=== PATIENT | female | born 1965 | race Caucasian/White ===

== ENCOUNTER 2021-08-26 07:09 | Inpatient (IN) ==
--- NOTE | 2021-08-26 07:17 | Emergency Department Note ---
HPI General Chief complaint: Abdominal Pain Stated complaint: Abdominal Pain Time Seen by Provider: 08/26/21 07:17 Source: patient Mode of arrival: ambulatory Limitations: no limitations History of Present Illness HPI Narrative: 56-year-old female presenting with abdominal pain and vomiting. Pain started yesterday evening and is diffusely throughout the abdomen. Does not radiate to her back. She denies any prior abdominal surgeries. She is a pack per day smoker and has a history of COPD. Denies drug or alcohol use. No blood in the vomit, melena, fever, or dysuria. Related Data Previous Rx's Medication Instructions Recorded ondansetron 4 mg disintegrating 4 mg PO Q6H PRN #14 tab 04/15/20 tablet Allergies Allergy/AdvReac Type Severity Reaction Status Date / Time No Known Drug Allergies Allergy Verified 08/14/19 13:49 Review of Systems ROS ROS Narrative: Narrative: Constitutional: Denies fever or chills ENT ED: Denies throat pain Cardiovascular: Denies chest pain Respiratory: Denies shortness of breath or cough Gastrointestinal: Reports abdominal pain, nausea and vomiting; Denies diarrhea, hematochezia or melena Genitourinary: Denies dysuria or hematuria Musculoskeletal: Denies back pain Integumentary: Denies rash Neurological: Denies headache or weakness Psychiatric: Denies anxiety Endocrine: Denies fatigue Hematological/Lymphatic: Denies easy bruising PFSH Narrative Patient History Narrative: Narrative: Medical/Surgical/Family History All Active Problems (Updated 08/26/21 @ 15:34 by Cesar Bhagat MD) Gastritis (Acute) Partial small bowel obstruction (Acute) Bilateral leg pain (Acute) Other contact with other birds, initial encounter (Chronic) Gastroesophageal reflux disease (Chronic) Tobacco use (Chronic) Injury of left shoulder (Chronic ~2007) Endometriosis (Chronic) Renal calculus (Chronic) Left shoulder pain (Chronic) Low back pain (Chronic) Shortness of breath (Chronic) Cough (Chronic) Granulomatous interstitial lung disease (Chronic) COPD exacerbation (Chronic) Chronic neck pain (Chronic) COPD (chronic obstructive pulmonary disease) (Chronic) Lung granuloma (Chronic) Lung nodules (Chronic) Foreign body of ear, right (Acute) Chest pain (Acute) Headache (Acute) Sinusitis (Acute) Cervicalgia (Acute) Tension headache (Acute) Pleurisy (Acute) Lung granuloma (Acute) Medical History Cervicalgia Chest pain Chronic neck pain COPD (chronic obstructive pulmonary disease) COPD exacerbation Cough Endometriosis Foreign body of ear, right Gastroesophageal reflux disease Granulomatous interstitial lung disease Headache Injury of left shoulder (~2007) Left shoulder pain Low back pain Lung granuloma Lung nodules Renal calculus Shortness of breath Sinusitis Tension headache Tobacco use Started smoking age 14; still smoking three-quarter pack a day. Surgical History History of neck surgery Cervical Double Diskectomy Status post laparoscopic surgery Endometriosis Family History (Updated 04/14/20 @ 23:50 by Arslan Tong DO) Mother Lymphoma Social History Smoking Status: Current every day smoker Alcohol Intake Frequency: does not drink Substance Use: does not use Exam Narrative Narrative: Narrative: General Limitations: no limitations General appearance: Present alert and in no apparent distress Head Head: Present atraumatic and normocephalic Eye Eye: Present normal appearance and EOMI; Absent scleral icterus or conjunctival injection ENT ENT: Present mucous membranes moist Neck Neck: Present trachea midline Chest Chest: Present symmetric chest wall rise Respiratory Respiratory: Present normal lung sounds bilaterally; Absent respiratory distress , rales/crackles, wheezes, stridor or accessory muscle use Cardiovascular Cardiovascular: Present regular rate and normal rhythm; Absent systolic murmur or diastolic murmur Adbominal Abdominal: Present soft and tenderness (Mild diffuse tenderness to palpation); Absent distention, guarding, rebound, rigidity, organomegaly or mass Extremities Extremities: Present normal inspection; Absent pretibial edema Back Back: Absent CVA tenderness (R), CVA tenderness (L) or spinous process tenderness Neurological Neurological: Present alert and oriented X3; Absent motor sensory deficit Psychiatric Psychiatric: Present normal affect and normal mood Skin Skin: Present warm (WNL) and dry Course Consultations Consultation #1: Dr. De La Vega, general surgery Time: 15:20 Vital Signs Vital signs: Vital Signs Temperature 97.7 F 08/26/21 07:10 Pulse Rate 61 08/26/21 07:10 Respiratory Rate 20 08/26/21 07:10 Blood Pressure 143/65 08/26/21 07:10 Pulse Oximetry (%) 98 08/26/21 07:10 Temperature 97.7 F 08/26/21 07:10 Pulse Rate 73 08/26/21 15:24 Respiratory Rate 20 08/26/21 07:10 Blood Pressure 110/76 08/26/21 15:24 Pulse Oximetry (%) 93 08/26/21 15:24 [facility] MDM Narrative Medical decision making narrative: 56-year-old female presenting with abdominal pain and vomiting. Vital signs are normal. Abdomen is diffusely tender on exam. Will obtain labs, CT, and reevaluate. Labs notable for mild leukocytosis to 14.3. Per Dr. Cespedes of radiology, CT shows a partial small bowel obstruction. I spoke with Dr. De La Vega of general surgery who will admit the patient and we will place an NG tube here in the emergency department. Findings and plan discussed with patient. Lab Data Lab results reviewed: Yes I reviewed the patient's lab results. Result diagrams: 08/26/21 08:13 08/26/21 08:13 Labs: Lab Results 08/26/21 08/26/21 08/26/21 Range/Units 08:12 08:13 08:13 WBC 14.3 H (4.5-11.0) K/mcL RBC 4.40 (3.59-5.38) M/mcL Hgb 13.4 (11.2-15.7) g/dL Hct 39.4 (34.1-44.9) % MCV 89.5 (80.0-100.0) fL MCH 30.5 (26.0-34.0) pg MCHC 34.0 (31.0-36.0) g/dL RDW 13.5 (11.5-14.5) % Plt Count 373 (140-440) K/mcL MPV 10.6 H (7.4-10.4) fL Neut % (Auto) 68.7 (38.0-78.0) % Lymph % (Auto) 22.4 (15.5-49.0) % [place] % (Auto) 8.7 (1.0-12.0) % Eos % (Auto) 0.1 (0.0-7.0) % Baso % (Auto) 0.1 (0.0-2.0) % Lymph # (Auto) 3.21 (1.50-4.80) K/mcL [place] # (Auto) 1.25 H (0.10-0.90) K/mcL Eos # (Auto) 0.01 (0.00-0.70) K/mcL Baso # (Auto) 0.02 (0.00-0.30) K/mcL Absolute Neutrophils 9.81 H (1.80-8.00) K/mcL Sodium 132 L (133-145) mmol/L Potassium 3.9 (3.3-5.1) mmol/L Chloride 98 (96-108) mmol/L Carbon Dioxide 20 L (22-30) mmol/L Anion Gap 14.0 (8.0-16.0) BUN 19 (6-20) mg/dL Creatinine 0.9 (0.6-1.1) mg/dL POC Creatinine 0.9 (0.6-1.2) GFR Calculation 70 Glucose 125 H (70-105) mg/dL Calcium 10.7 H (8.6-10.4) mg/dL Total Bilirubin 0.4 (0.1-1.0) mg/dL AST 22 (<32) U/L ALT 11 (<40) U/L Alkaline Phosphatase 101 (39-117) U/L Total Protein 7.9 (5.9-8.4) gm/dL Albumin 4.7 (3.2-5.2) gm/dL Globulin 3.2 (2.2-3.7) gm/dL Albumin/Globulin Ratio 1.5 (1.0-2.3) Lipase 22 (7-60) U/L Discharge Plan Patient/Caregiver Discharge Instructions Pt seen by [facility] [employer]/PA only: No Clinical Impression: Partial small bowel obstruction Patient Disposition: Xfer As Inpt ([facility]) Condition: Fair Follow up with: No,PCP [Primary Care Provider] - Prescriptions: No Action ondansetron 4 mg tablet,disintegrating 4 mg PO Q6H PRN (Reason: nausea and vomiting) Qty: 14 0RF
[2021-08-26] MEDS ORDERED: ONDANSETRON 4 MG/2 ML VIAL IV ONE (07:45)
[2021-08-26 09:03] LABS: Basophils # (Auto) 0.02 K/mcL (0.00-0.30); Basophils % (Auto) 0.1 % (0.0-2.0); Eosinophils # (Auto) 0.01 K/mcL (0.00-0.70); Eosinophils % (Auto) 0.1 % (0.0-7.0); Hematocrit 39.4 % (34.1-44.9); Hemoglobin 13.4 g/dL (11.2-15.7); Lymphocytes # (Auto) 3.21 K/mcL (1.50-4.80); Lymphocytes % (Auto) 22.4 % (15.5-49.0); Mean Cell Volume 89.5 fL (80.0-100.0); Mean Platelet Volume 10.6 fL (7.4-10.4); Monocytes # (Auto) 1.25 K/mcL (0.10-0.90); Monocytes % (Auto) 8.7 % (1.0-12.0); Neutrophils % (Auto) 68.7 % (38.0-78.0); Platelet Count 373 K/mcL (140-440); Red Cell Distribution Width 13.5 % (11.5-14.5); WBC 14.3 K/mcL (4.5-11.0)
[2021-08-26 09:23] LABS: ALT/SGPT 11 U/L (<40); AST/SGOT 22 U/L (<32); Albumin 4.7 gm/dL (3.2-5.2); Albumin/Globulin Ratio 1.5 (1.0-2.3); Alkaline Phosphatase 101 U/L (39-117); Bilirubin,Total 0.4 mg/dL (0.1-1.0); Blood Urea Nitrogen 19 mg/dL (6-20); Calcium 10.7 mg/dL (8.6-10.4); Carbon Dioxide 20 mmol/L (22-30); Chloride 98 mmol/L (96-108); Globulin 3.2 gm/dL (2.2-3.7); Glomerular Filtration Rate 70; Glucose 125 mg/dL (70-105)
[2021-08-26] MEDS ORDERED: 0.9 % SODIUM CHLORIDE 1,000 ML IV ONE (09:28)
[2021-08-26] MEDS ORDERED: ONDANSETRON 4 MG/2 ML VIAL IV PRN (15:47)
--- NOTE | 2021-08-26 15:59 | General Surg History&Physical ---
HPI History of Present Illness Patient information: Note initiated : 08/26/21 at 3:53 pm Service Date, if different from initiated Date: [] Patient: Dean Frank a 56 y/o F admitted on for Abdominal Pain. Chief Complaint: [] Chief complaint: Nausea and vomiting History of present illness: Ms. Rachel Aguilar is a 56 year old F with a prior history in her 20s exploratory laparoscopy for endometriosis. She denies any other abdominal surgeries. Patient was recently at [facility] and was discharged with 5 days worth azithromycin for shortness of breath, cough and diagnosis of pneumonia. She was discharged 2 days ago. She started yesterday with abdominal distention, nausea and emesis. She came into our emergency room where work-up with CT scan is significant for a partial small bowel obstruction. She denies any other medical problems. She denies any fevers or chills. Review of Systems Review of systems: All systems are reviewed, negative other than above PFSH PFSH All Active Problems Gastritis (Acute) Partial small bowel obstruction (Acute) Bilateral leg pain (Acute) Other contact with other birds, initial encounter (Chronic) Gastroesophageal reflux disease (Chronic) Tobacco use (Chronic) Injury of left shoulder (Chronic ~2007) Endometriosis (Chronic) Renal calculus (Chronic) Left shoulder pain (Chronic) Low back pain (Chronic) Shortness of breath (Chronic) Cough (Chronic) Granulomatous interstitial lung disease (Chronic) COPD exacerbation (Chronic) Chronic neck pain (Chronic) COPD (chronic obstructive pulmonary disease) (Chronic) Lung granuloma (Chronic) Lung nodules (Chronic) Foreign body of ear, right (Acute) Chest pain (Acute) Headache (Acute) Sinusitis (Acute) Cervicalgia (Acute) Tension headache (Acute) Pleurisy (Acute) Lung granuloma (Acute) Medical History Cervicalgia Chest pain Chronic neck pain COPD (chronic obstructive pulmonary disease) COPD exacerbation Cough Endometriosis Foreign body of ear, right Gastroesophageal reflux disease Granulomatous interstitial lung disease Headache Injury of left shoulder (~2007) Left shoulder pain Low back pain Lung granuloma Lung nodules Renal calculus Shortness of breath Sinusitis Tension headache Tobacco use Started smoking age 14; still smoking three-quarter pack a day. Surgical History History of neck surgery Cervical Double Diskectomy Status post laparoscopic surgery Endometriosis Family History Mother Lymphoma Social History alcohol intake frequency: does not drink substance use type: does not use MEDS/ALLERGIES Home Medications and Allergies Home Medications Medication Instructions Recorded Confirmed Type ondansetron 4 mg disintegrating 4 mg PO Q6H PRN #14 tab 04/15/20 Rx tablet Allergies Allergy/AdvReac Type Severity Reaction Status Date / Time No Known Drug Allergies Allergy Verified 08/14/19 13:49 Physical Examination Vital Signs Vital signs: Temp Pulse Resp BP Pulse Ox 97.7 F 73 20 110/76 93 08/26/21 07:10 08/26/21 15:24 08/26/21 07:10 08/26/21 15:24 08/26/21 15:24 General physical appearance General physical exam: well developed, well nourished and no distress Eyes Eye exam: PERRL and normal ocular movement ENT ENT exam: normal pinna, normal nares, normal mucosa, no hearing loss and no congestion Head Head exam IM: Present atraumatic and normocephalic Neck Neck exam: no masses, no bruits, trachea midline, no lymphadenopathy and no venous distension Cardiovascular Cardiovascular exam IM: Present normal rate and rhythm Respiratory Respiratory exam: normal expansion, normal respiratory effort, clear to percussion and clear to auscultation Abdomen Abdomen: Present soft, tender, bowel sounds and distended Hernia: Present none Genitourinary Genitourinary (Female): Present normal external genitalia Rectum Rectum: Present normal sphincter tone, no hemorrhoids, no tenderness, no masses and no bleeding Integumentary Integumentary: Present no rash, no growths and no abnormal pigmentation Neurologic Neurologic: Present normal coordination and normal sensation Musculoskeletal Musculoskeletal: Present normal gait and normal posture Psychiatric Psychiatric: Present oriented to time, oriented to person, oriented to place, speech is normal and memory intact Results Labs Result diagrams: 08/26/21 08:13 08/26/21 08:13 Labs: Abnormal lab results 08/26/21 08/26/21 Range/Units 08:13 08:13 WBC 14.3 H (4.5-11.0) K/mcL MPV 10.6 H (7.4-10.4) fL [place] # (Auto) 1.25 H (0.10-0.90) K/mcL Absolute Neutrophils 9.81 H (1.80-8.00) K/mcL Sodium 132 L (133-145) mmol/L Carbon Dioxide 20 L (22-30) mmol/L Glucose 125 H (70-105) mg/dL Calcium 10.7 H (8.6-10.4) mg/dL Diabetes panel 08/26/21 Range/Units 08:13 Sodium 132 L (133-145) mmol/L Potassium 3.9 (3.3-5.1) mmol/L Chloride 98 (96-108) mmol/L Carbon Dioxide 20 L (22-30) mmol/L BUN 19 (6-20) mg/dL Creatinine 0.9 (0.6-1.1) mg/dL Glucose 125 H (70-105) mg/dL Calcium 10.7 H (8.6-10.4) mg/dL AST 22 (<32) U/L ALT 11 (<40) U/L Alkaline Phosphatase 101 (39-117) U/L Total Protein 7.9 (5.9-8.4) gm/dL Albumin 4.7 (3.2-5.2) gm/dL Calcium panel 08/26/21 Range/Units 08:13 Calcium 10.7 H (8.6-10.4) mg/dL Albumin 4.7 (3.2-5.2) gm/dL Pituitary panel 08/26/21 Range/Units 08:13 Sodium 132 L (133-145) mmol/L Potassium 3.9 (3.3-5.1) mmol/L Chloride 98 (96-108) mmol/L Carbon Dioxide 20 L (22-30) mmol/L BUN 19 (6-20) mg/dL Creatinine 0.9 (0.6-1.1) mg/dL Glucose 125 H (70-105) mg/dL Calcium 10.7 H (8.6-10.4) mg/dL Adrenal panel 08/26/21 Range/Units 08:13 Sodium 132 L (133-145) mmol/L Potassium 3.9 (3.3-5.1) mmol/L Chloride 98 (96-108) mmol/L Carbon Dioxide 20 L (22-30) mmol/L BUN 19 (6-20) mg/dL Creatinine 0.9 (0.6-1.1) mg/dL Glucose 125 H (70-105) mg/dL Calcium 10.7 H (8.6-10.4) mg/dL Total Bilirubin 0.4 (0.1-1.0) mg/dL AST 22 (<32) U/L ALT 11 (<40) U/L Alkaline Phosphatase 101 (39-117) U/L Total Protein 7.9 (5.9-8.4) gm/dL Albumin 4.7 (3.2-5.2) gm/dL All other labs normal. Imaging Abdominal x-ray: other (CT scan reviewed by myself, consistent with distal partial small bowel obstruction.) A/P Assessment and plan (1) Partial small bowel obstruction: Plan: This is a pleasant 56-year-old female who presents with signs symptoms consistent with partial small bowel obstruction. Plan: Admit, n.p.o., NG tube, plan on small bowel follow-through in the a.m. Status: Acute (2) Tobacco use: Status: Chronic Comment: Started smoking age 14; still smoking three-quarter pack a day. (3) Endometriosis: Status: Chronic (4) Shortness of breath: Status: Chronic (5) Cough: Status: Chronic (6) COPD (chronic obstructive pulmonary disease): Status: Chronic Time Spent With Patient Time: Total time spent is greater than 50% in coordination of care (as documented) at patient's floor/unit and/or counseling patient:
[2021-08-26] MEDS ORDERED: AZITHROMYCIN 250 MG in DEXTROSE 5% IN WATER 250 ML IV SCH (16:00)
--- NOTE | 2021-08-26 16:02 | Cat Scan Report ---
CLINICAL INFORMATION: Abdominal pain COMPARISON: None. TECHNIQUE: Following enteric contrast, 80 cc of Isovue-370 were injected intravenously, and 60 seconds later, 0.625 mm helical slices were obtained from the mid heart through the subtrochanteric regions. Following reconstruction, 2.5 mm sagittal, coronal and axial reformatted images were processed and reviewed at bone, lung and soft tissue windows. Five minutes later, 0.625 mm helical slices were obtained from the mid heart through the kidneys and viewed at soft tissue windows.The exam was performed using radiation dose optimization techniques including, but not limited to, automated exposure control, adjustment of the mA and/or kV according to patient size and use of iterative reconstruction technique. FINDINGS: The lung apices show small region of consolidated atelectasis in the lingula. Scattered mosaic attenuation pattern seen in the visualized lower right middle lobes. There are no effusions. The visualized heart is grossly normal. Small hiatal hernia noted Abdominal images show mild fatty change within the liver. There is a 6 mm simple cyst in the right hepatic lobe. No significant hepatic lesions. Gallbladder and bile ducts, both kidneys, adrenal glands, spleen, and pancreas are normal in size, configuration and attenuation without focal lesion. Abdominal aorta is normal diameter but there is extremely heavy fibrofatty and calcific atherotic plaque in the infrarenal abdominal aorta and also in the common iliac arteries. There is a stenosis greater than 50% of the left common iliac artery. Small amount of free fluid is noted in the left upper quadrant the paracolic gutter. No free air or adenopathy. Pelvic images show normal urinary bladder. Slightly retroflexed uterus is normal in size: 6 x 2.4 cm. Both ovaries are normal alignment each approximately 3 x 2 cm. The stomach, duodenum and jejunum are moderately dilated to a transition point in the central false pelvis (axial image 102, sagittal image 56 and coronal image 48). There is abrupt transition to decompressed ileum. This is due to adhesion or stricture in this region. Colon is moderately decompressed. Medial pericecal appendix is unremarkable. Bone windows show no osseous abnormality IMPRESSION: High grade partial small bowel obstruction of the distal jejunum due to adhesions or strictures the central false pelvis. Small amount of free fluid in the left paracolic gutter suggests early third spacing. Small hiatal hernia. Small region of consolidated atelectasis in the lingula. Mosaic perfusion pattern the visualized lower right middle lobes. Mild fatty change within the liver. Heavy fibrofatty calcific plaque in the abdominal aorta and branches-particularly iliac arteries. Please consider aggressive identification and treatment atherosclerotic risk factors. 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
[2021-08-26] MEDS: LACTATED RINGERS 1,000 ML IV SCH (18:19)
[2021-08-26] MEDS: 0.9 % SODIUM CHLORIDE 10 ML SYRINGE IV SCH (20:44)
[2021-08-27] MEDS: LACTATED RINGERS 1,000 ML IV SCH ×2 (02:46→11:28)
[2021-08-27] MEDS: 0.9 % SODIUM CHLORIDE 10 ML SYRINGE IV SCH ×2 (05:24→15:26)
[2021-08-27 06:27] LABS: Basophils # (Auto) 0.03 K/mcL (0.00-0.30); Basophils % (Auto) 0.2 % (0.0-2.0); Eosinophils # (Auto) 0.07 K/mcL (0.00-0.70); Eosinophils % (Auto) 0.6 % (0.0-7.0); Hematocrit 39.3 % (34.1-44.9); Hemoglobin 12.6 g/dL (11.2-15.7); Lymphocytes # (Auto) 4.55 K/mcL (1.50-4.80); Lymphocytes % (Auto) 37.8 % (15.5-49.0); Mean Cell Volume 93.3 fL (80.0-100.0); Mean Corpuscular HGB Conc 32.1 g/dL (31.0-36.0); Mean Platelet Volume 10.5 fL (7.4-10.4); Monocytes % (Auto) 10.8 % (1.0-12.0); Neutrophils % (Auto) 50.6 % (38.0-78.0); Platelet Count 371 K/mcL (140-440); RBC 4.21 M/mcL (3.59-5.38); Red Cell Distribution Width 13.8 % (11.5-14.5)
[2021-08-27 07:02] LABS: Blood Urea Nitrogen 15 mg/dL (6-20); Calcium 9.4 mg/dL (8.6-10.4); Carbon Dioxide 24 mmol/L (22-30); Chloride 107 mmol/L (96-108); Glomerular Filtration Rate 70; Glucose 92 mg/dL (70-105)
--- NOTE | 2021-08-27 08:57 | General Surgery Progress Note ---
SUBJECTIVE Subjective Patient information: Note initiated : 08/27/21 at 8:55 am Service Date, if different from initiated Date: [] Patient: Dean Frank 56 y/o F admitted on 08/26/21 for Abdominal Pain. Chief Complaint: [] Interval history: Patient feels somewhat better this morning, no further nausea or emesis. She denies flatus or bowel movement. Her abdomen she reports feels less distended. Constitutional Vitals: Vital Signs Temp Pulse Resp BP Pulse Ox 98.7 F 81 16 122/61 91 08/27/21 03:50 08/27/21 03:50 08/27/21 03:50 08/27/21 03:50 08/27/21 03:50 Period Temp Pulse Resp BP Sys/Crockett Pulse Ox Last 24 Hr 97.6 F-98.7 F 60-89 14-16 103-123/61-76 91-99 Intake and Output 08/26/21 08/27/21 08/27/21 21:59 05:59 13:59 Intake Total 0 1000 Output Total 140 625 Balance -140 375 Weight 165 lb Intake & Output: Intake & Output 08/26/21 08/27/21 08/27/21 21:59 05:59 13:59 Intake Total 0 1000 Output Total 140 625 Balance -140 375 Weight 165 lb Intake: IV 1000 Lactated Ringers 1,000 ml @ 125 1000 mls/hr IV .Q8H [facility] Rx#: [id number] Oral 0 0 Tube Feeding 0 Output: Gastric Drainage 40 500 Left Nare [place]-Sump 40 500 Void Amount 100 125 Other: Urine Appearance Clear Clear Urine Color Pale Dark Ericka Urine Odor Normal # Emeses 2 General appearance: cooperative and no acute distress GI/Abdominal GI/Abdominal exam: Present soft and distended; Absent guarding, rebound or tenderness A/P Assessment and plan (1) Partial small bowel obstruction: Plan: Hospital day #1 for partial small bowel obstruction, feels better with NG tube, no further nausea or emesis however no flatus or bowel movement. Plan: Small bowel follow-through. Status: Acute Time Spent With Patient Time: Total time spent is greater than 50% in coordination of care (as documented) at patient's floor/unit and/or counseling patient:
[2021-08-27] MEDS ORDERED: AZITHROMYCIN 250 MG in DEXTROSE 5% IN WATER 250 ML IV SCH (09:00)
[2021-08-27] MEDS: HYDROmorphone 0.5 MG/0.5 ML SYRINGE IV PRN ×2 (10:21→15:10)
--- NOTE | 2021-08-27 15:32 | XRay Report ---
CLINICAL INFORMATION: Partial distal jejunal obstruction. COMPARISON: None. TECHNIQUE: Following [employer] imaging, single contrast barium was infused through indwelling NG tube and serial imaging was obtained for one hour. FINDINGS: The stomach, duodenum and jejunum is only mildly dilated to the level of the partial obstruction due to adhesions in the distal jejunum. The ileum is relatively decompressed. Small bowel transit time is only slightly delayed-approximately 25 minutes. IMPRESSION: Mild partial small bowel obstruction of the distal jejunum due to adhesions or stricture Interpreted and Authenticated by: Ean Cespedes 08/27/21
--- NOTE | 2021-08-27 20:41 | General Surgery Progress Note ---
SUBJECTIVE Subjective Patient information: Note initiated : 08/27/21 at 8:34 pm Service Date, if different from initiated Date: [] Patient: Dean Frank 56 y/o F admitted on 08/26/21 for Abdominal Pain. Chief Complaint: [] Interval history: Contacted by warehouse order selector about patient desiring to smoke while in hospital at 1646 today. She requested a Nicotine patch to help the patient not sneak outside to smoke as she had done twice so far today. I instructed her the patient was not allowed to smoke at that no Nicotine patch was indicated since the patient had told me last night she had not smoked in two weeks. Patient and I had long talk about tobacco cessation upon admission and why it was critical in her situation with a pSBO. Per warehouse order selector, Patient seemed to understand, however upon change of shift tried to sneak out and smoke again, was stopped by nursing and was told she was not allowed to smoke. Patient was adamant about smoking, she was offered AMA and refused. Patient then left the hospital without leaving AMA. I was notified of this by the warehouse order selector at 2030 by phone. Constitutional Vitals: Vital Signs Temp Pulse Resp BP Pulse Ox 98.4 F 89 18 104/51 93 08/27/21 19:41 08/27/21 19:41 08/27/21 19:41 08/27/21 19:41 08/27/21 19:41 Period Temp Pulse Resp BP Sys/Crockett Pulse Ox Last 24 Hr 97.7 F-98.9 F 60-89 14-18 91-123/48-72 91-94 Intake and Output 08/27/21 08/27/21 08/27/21 05:59 13:59 21:59 Intake Total 1000 1250 1200 Output Total 625 150 925 Balance 375 1100 275 Weight 130 lb 1.6 oz Patient Weight 08/28/21 05:59 Weight 130 lb 1.6 oz Intake & Output: Intake & Output 08/27/21 08/27/21 08/27/21 05:59 13:59 21:59 Intake Total 1000 1250 1200 Output Total 625 150 925 Balance 375 1100 275 Weight 130 lb 1.6 oz Intake: IV 1000 1250 Zithromax 250 mg In Dextrose 5% 250 in Water 250 ml @ 250 mls/hr IV DAILY [facility] Rx#:[id number] Lactated Ringers 1,000 ml @ 125 1000 1000 mls/hr IV .Q8H [facility] Rx#: [id number] Oral 0 1200 Tube Feeding 0 0 Output: Gastric Drainage 500 150 225 Left Nare [place]-Sump 500 150 225 Void Amount 125 Urine/Stool Mix 700 Other: Meal Dinner Percent of Meal Consumed 75% Urine Appearance Clear Urine Color Dark Ericka Stool Size Small Stool Color Brown Stool Consistency Loose # Voids 1 # Bowel Movements 1 A/P Assessment and plan (1) Partial small bowel obstruction: Plan: Patient left hospital without discharge, without AMA. Status: Acute Time Spent With Patient Time: Total time spent is greater than 50% in coordination of care (as documented) at patient's floor/unit and/or counseling patient:
== END 2021-08-27 20:22 | disposition left against medical advice (07) | DRG 390 ==
LOC: ED 07:09 → MEDSUR 16:46
PROVIDERS: ADMIT Surgery; ATTEND Surgery